=== PATIENT | female | born 1940 | race Native Hawaiian/Other Pacific Islander ===

== ENCOUNTER 2018-05-14 13:25 | Emergency (ER) | payer MEDICARE ==
--- NOTE | 2018-05-14 13:56 | Emergency Department Record ---
History of Present Illness - General Chief Complaint: Abdominal Pain Stated Complaint: CONSTIPATED Time Seen by Provider: 05/14/18 13:43 Source: Patient, Family Mode of Arrival: Ambulatory Limitations: No limitations - History of Present Illness Initial Comments: 78 yo female presents with abdominal cramps and constipation. The onset of the symptoms was first of the week. She was seen by her PCP and had an Xray performed yesterday. The XR demonstrated abundant stool, no obstruction. No fever, chills, or vomiting. She is eating and drinking. She denies any history of diverticulitis or intestinal infection. She does feel an urge to push but she has known hemorrhoids and resists pushing. She had labs this week that she reports her doctor told her were normal. MD Complaint: Abdominal pain, Other (Constipation) Onset/Timin -: Days(s) Location: Diffuse Radiation: None Migration to: No migration Severity scale (1-10): 7 Quality: Cramping Consistency: Constant Improves With: Nothing Worsens With: Nothing Associated Symptoms: Nausea - Related Data Patient : No Hx Age of Menopause: 51 Previous Rx's Medication Instructions Recorded Polyethylene Glycol 3350 [Miralax] 1 packet PO DAILY #20 packet 05/14/18 Allergies Allergy/AdvReac Type Severity Reaction Status Date / Time cephalexin [From Keflex] Allergy NAUSEA AND Verified 05/14/18 13:40 VOMITING mupirocin Allergy HIVES Verified 05/14/18 13:40 benazepril HCl AdvReac RESPIRATORY Verified 12/04/15 10:47 [From Lotensin] IRRITATION Travel Screening - Travel/Exposure Within Last 30 Days Have you traveled within the last 30 days?: No Review of Systems Constitutional: Denies: Chills, Fever, Malaise, Weakness Eyes: Denies: Eye discharge ENT: Denies: Congestion, Throat pain Respiratory: Denies: Cough, Dyspnea, Hemoptysis Cardiovascular: Denies: Chest pain, Palpitations, Syncope Endocrine: Denies: Fatigue Gastrointestinal: Reports: As per HPI, Abdominal pain, Constipation, Nausea. Denies: Diarrhea, Hematemesis, Hematochezia, Melena, Vomiting Genitourinary: Denies: Dysuria Musculoskeletal: Denies: Arthralgia, Back pain, Joint swelling, Myalgia Skin: Denies: Bruising, Change in color, Rash Neurological: Denies: Headache Psychiatric: Denies: Anxiety Hematological/Lymphatic: Denies: Easy bleeding, Easy bruising Past Medical History - SOCIAL HISTORY Smoking Status: Never smoker - RESPIRATORY Hx Respiratory Disorders: Yes Hx Bronchitis: Yes - CARDIOVASCULAR Hx Cardio Disorders: Yes Hx Hypertension: Yes Comment:: high cholesterol - NEURO Hx Neuro Disorders: No Hx Seizures: No - GI Hx GI Disorders: No Hx Reflux: Yes (controlled) Hx Hiatal Hernia: Yes Hx of Polyps: Yes (colon, benign) - Hx Genitourinary Disorders: No Hx Bladder Problem: Yes (leaks alot) - ENDOCRINE Hx Endocrine Disorders: No - MUSCULOSKELETAL Hx Musculoskeletal Disorders: No Hx Arthritis: Yes (osteoarthritis) Comment:: rt knee pain r/t osteoarthritis - PSYCH Hx Psych Problems: No - HEMATOLOGY/ONCOLOGY Hx Hematology/Oncology Disorders: No Family Medical History Any Significant Family History?: Yes Family Hx Comment (NOT TO BE USED IN PLACE OF ITEMS BELOW): Father of cerebral bleed at age 54. Mother of stroke and diabetes. Hx Diabetes: Mother Hx Heart Disease: Mother Hx Stroke: Father Physical Exam - General General Appearance: Alert, Oriented x3, Cooperative, No acute distress Limitations: No limitations - Head Head exam: Atraumatic, Normal inspection - Eye Eye exam: Normal appearance. negative: Conjunctival injection, Scleral icterus - ENT ENT exam: Normal exam Ear exam: Normal external inspection Nasal Exam: Normal inspection Mouth exam: Normal external inspection - Neck Neck exam: Normal inspection - Respiratory Respiratory exam: Normal lung sounds bilaterally. negative: Respiratory distress - Cardiovascular Cardiovascular Exam: Regular rate, Normal rhythm, Normal heart sounds - GI/Abdominal GI/Abdominal exam: Soft, Normal bowel sounds. negative: Distended, Guarding, Rebound, Rigid, Tenderness - Rectal Rectal exam: Fecal impaction, Heme (-) stool, Normal inspection, Normal rectal tone. negative: Black stool, Bloody stool, Decreased rectal tone, Heme (+) stool, Hemorrhoids, Mass, Tenderness - exam: Deferred - Extremities Extremities exam: Normal inspection - Back Back exam: Denies: CVA tenderness (R), CVA tenderness (L) - Neurological Neurological exam: Alert, Oriented X3 - Psychiatric Psychiatric exam: Normal affect, Normal mood - Skin Skin exam: Dry, Intact, Normal color, Warm Course Vital Signs 05/14/18 13:32 Temperature 98.1 F Pulse Rate 85 Respiratory 20 Rate Blood Pressure 156/73 Pulse Ox 98 - Reevaluation(s) Reevaluation #1: The XR and the report from yesterday was reviewed No obstruction with significant colonic stool throughout. The rectal examination demonstrated a significant amount of firm claylike stool in the rectum. Heme -. I recommend an enema for symptomatic relief. 05/14/18 13:59 05/14/18 15:07 The patient had a bowel movement with relief of the pressure feeling. We discussed home care for continuing bowel movements. We discussed reasons to return immediately as well. Disposition Disposition: Discharge Clinical Impression: Constipation Qualifiers: Constipation type: unspecified constipation type Qualified Code(s): K59.00 - Constipation, unspecified Disposition: Home, Self-Care Condition: (1) Good Instructions: Constipation (ED) Additional Instructions: Call your doctor for the next available follow up appointment Return to the ER for a recheck if worse, any new concerns or questions Take the prescriptions provided as directed Review this ER visit and the tests performed with your family doctor Prescriptions: Polyethylene Glycol 3350 [Miralax] 1 packet PO DAILY #20 packet Forms: Patient Portal Access Time of Disposition: 15:09 Quality - Quality Measures Quality Measures: N/A - Blood Pressure Screening Does Patient Have Any of the Following: No Blood Pressure Classification: Pre-Hypertensive BP Reading Systolic Measurement: 144 Diastolic Measurement: 82 Screening for High Blood Pressure: < Pre-Hypertensive BP, F/U Documented > [ G8950] Pre-Hypertensive Follow-up Interventions: Referral to alternative/primary care provider.
== END 2018-05-14 15:35 | disposition home or self-care (01) ==
LOC: ER 13:25
DX: K59.00 Constipation, unspecified (principal); R11.0 Nausea; I10 Essential (primary) hypertension
CPT/HCPCS: 99282

== ENCOUNTER 2018-11-20 12:02 | Emergency (ER) | payer MEDICARE ==
[2018-11-20 14:18] LABS: ABSOLUTE NEUTROPHIL COUNT 4.93; BASO % 0.1 % (0-6); EOS % 1.8 % (0-6); GRAN % 67.1 % (47-80); HEMATOCRIT 39.3 % (35.0-47.0); HEMOGLOBIN 12.8 gm/dl (11.6-16.0); LYMPH % 21.9 % (16-45); MEAN CELL VOLUME 97.8 fl (81-97); MEAN CORPUSCULAR HEMOGLOBIN 31.8 pg (27-33); MEAN CORPUSCULAR HGB CONC 32.6 g/dl (32-36); MEAN PLATELET VOLUME 12.9 fl (7.4-10.4); MONO % 9.1 % (0-9); PLATELET COUNT 186 K/uL (130-400); RED BLOOD COUNT 4.02 M/uL (3.80-5.40); WHITE BLOOD COUNT W/O DIFF 7.4 K/uL (4.2-12.2)
[2018-11-20 14:33] LABS: BLOOD UREA NITROGEN 17 mg/dL (8-23); CREATININE 0.5 mg/dL (0.5-0.9); EST GLOMERULAR FILTRATION RATE > 60 mL/min
[2018-11-20 14:36] LABS: GLUCOSE,RANDOM 83 mg/dL (74-109)
[2018-11-20] MEDS ORDERED: ACETAMINOPHEN 500 MG TABLET PO ONE (14:48)
--- NOTE | 2018-11-20 14:52 | Emergency Department Record ---
History of Present Illness - General Chief Complaint: Back Pain/Injury Stated Complaint: NAUSEA,BACK PAIN DUE TO MEDICATION Time Seen by Provider: 11/20/18 12:30 - History of Present Illness Onset/Timin -: Days(s) Similar Symptoms Previously: Yes Severity: Moderate Severity scale (1-10): 6 Quality: Aching Consistency: Constant Improves With: None Worsens With: None Context: Unknown Associated Symptoms: Denies other symptoms - Related Data Previous Rx's Medication Instructions Recorded Polyethylene Glycol 3350 [Miralax] 1 packet PO DAILY #20 packet 05/14/18 Apixaban [Eliquis] 5 mg PO BID #60 tablet 11/17/18 Allergies Allergy/AdvReac Type Severity Reaction Status Date / Time cephalexin [From Keflex] Allergy NAUSEA AND Verified 11/20/18 12:10 VOMITING mupirocin Allergy HIVES Verified 11/20/18 12:10 benazepril HCl AdvReac RESPIRATORY Verified 11/20/18 12:10 [From Lotensin] IRRITATION Travel Screening - Travel/Exposure Within Last 30 Days Have you traveled within the last 30 days?: No - Travel/Exposure Within Last Year Have you traveled outside the [place] in the last year?: No - Additonal Travel Details Have you been exposed to anyone with a communicable illness?: No Review of Systems Reviewed: No additional complaints except as noted below Constitutional: Reports: As per HPI. Denies: Chills, Fever, Malaise, Night sweats, Weakness, Weight change Eyes: Reports: As per HPI. Denies: Eye discharge, Eye pain, Photophobia, Vision change ENT: Reports: As per HPI. Denies: Congestion, Dental pain, Ear pain, Epistaxis, Hearing loss, Throat pain Respiratory: Reports: As per HPI. Denies: Cough, Dyspnea, Hemoptysis, Stridor, Wheezes Cardiovascular: Reports: As per HPI. Denies: Arrhythmia, Chest pain, Dyspnea on exertion, Edema, Murmurs, Orthopnea, Palpitations, Paroxysmal nocturnal dyspnea, Rheumatic Fever, Syncope Endocrine: Reports: As per HPI. Denies: Fatigue, Heat or cold intolerance, Polydipsia, Polyuria Gastrointestinal: Reports: As per HPI. Denies: Abdominal pain, Constipation, Diarrhea, Hematemesis, Hematochezia, Melena, Nausea, Vomiting Genitourinary: Reports: As per HPI. Denies: Abnormal menses, Discharge, Dyspareunia, Dysuria, Frequency, Hematuria, Incontinence, Retention, Urgency Musculoskeletal: Reports: As per HPI. Denies: Arthralgia, Back pain, Gout, Joint swelling, Myalgia, Neck pain Skin: Reports: As per HPI. Denies: Bruising, Change in color, Change in hair/nails, Lesions, Pruritus, Rash Neurological: Reports: As per HPI. Denies: Abnormal gait, Confusion, Headache, Numbness, Paresthesias, Seizure, Tingling, Tremors, Vertigo, Weakness Psychiatric: Reports: As per HPI. Denies: Anxiety, Auditory hallucinations, Depression, Homicidal thoughts, Suicidal thoughts, Visual hallucinations Hematological/Lymphatic: Reports: As per HPI. Denies: Anemia, Blood Clots, Easy bleeding, Easy bruising, Swollen glands Past Medical History - SOCIAL HISTORY Smoking Status: Never smoker Alcohol Use: None Drug Use: None - RESPIRATORY Hx Respiratory Disorders: Yes Hx Bronchitis: Yes - CARDIOVASCULAR Hx Cardio Disorders: Yes Hx Hypertension: Yes Comment:: high cholesterol - NEURO Hx Neuro Disorders: No Hx Seizures: No - GI Hx GI Disorders: No Hx Reflux: Yes (controlled) Hx Hiatal Hernia: Yes Hx of Polyps: Yes (colon, benign) - Hx Genitourinary Disorders: No Hx Bladder Problem: Yes (leaks alot) - ENDOCRINE Hx Endocrine Disorders: No - MUSCULOSKELETAL Hx Musculoskeletal Disorders: No Hx Arthritis: Yes (osteoarthritis) Comment:: rt knee pain r/t osteoarthritis - PSYCH Hx Psych Problems: No - HEMATOLOGY/ONCOLOGY Hx Hematology/Oncology Disorders: No Family Medical History Any Significant Family History?: Yes Family Hx Comment (NOT TO BE USED IN PLACE OF ITEMS BELOW): Father of cerebral bleed at age 54. Mother of stroke and diabetes. Hx Diabetes: Mother Hx Heart Disease: Mother Hx Stroke: Father Physical Exam - General General Appearance: Alert, Oriented x3, Cooperative, No acute distress - Head Head exam: Normal inspection - Eye Eye exam: Normal appearance, PERRL Pupils: Normal accommodation - ENT ENT exam: Normal exam, Mucous membranes moist, Normal external ear exam, Normal orophraynx, TM's normal bilaterally Ear exam: Normal external inspection. negative: External canal tenderness Nasal Exam: Normal inspection. negative: Discharge, Sinus tenderness Mouth exam: Normal external inspection, Tongue normal Teeth exam: Normal inspection. negative: Dental caries Throat exam: Normal inspection. negative: Tonsillar erythema, Tonsillar exudate - Neck Neck exam: Normal inspection, Full ROM. negative: Tenderness - Respiratory Respiratory exam: Normal lung sounds bilaterally. negative: Respiratory distress - Cardiovascular Cardiovascular Exam: Regular rate, Normal rhythm, Normal heart sounds - GI/Abdominal GI/Abdominal exam: Soft, Normal bowel sounds. negative: Tenderness - Rectal Rectal exam: Deferred - exam: Deferred - Extremities Extremities exam: Normal inspection, Full ROM, Normal capillary refill. negativ e: Tenderness - Back Back exam: Reports: Normal inspection, Full ROM. Denies: Muscle spasm, Rash noted, Tenderness - Neurological Neurological exam: Alert, Normal gait, Oriented X3, Reflexes normal - Psychiatric Psychiatric exam: Normal affect, Normal mood - Skin Skin exam: Dry, Intact, Normal color, Warm Course Vital Signs 11/20/18 11/20/18 12:15 14:33 Temperature 97.9 F Pulse Rate [ 63 59 L Right] Respiratory 18 20 Rate Blood Pressure 149/67 137/79 [Left Arm] Pulse Ox 97 97 Medical Decision Making - Data Complexity MDM Data: Labs Ordered and/or Reviewed (urine negative for infection), X-Ray Ordered and/or Reviewed (ct neg with some air in the bladder), EKG Ordered and/or Reviewed (EKG NSR and she spontaneously converted from atrial fib) - Lab Data Result diagrams: 11/20/18 14:05 11/20/18 14:05 Lab Results 11/20/18 11/20/18 11/20/18 Range/Units 14:05 14:05 14:05 WBC 7.4 (4.2-12.2) K/uL RBC 4.02 (3.80-5.40) M/uL Hgb 12.8 (11.6-16.0) gm/dl Hct 39.3 (35.0-47.0) % MCV 97.8 H (81-97) fl MCH 31.8 (27-33) pg MCHC 32.6 (32-36) g/dl RDW 13.0 (11.5-14.5) % Plt Count 186 (130-400) K/uL MPV 12.9 H (7.4-10.4) fl Gran % 67.1 (47-80) % Lymphocytes % 21.9 (16-45) % Monocytes % 9.1 H (0-9) % Eosinophils % 1.8 (0-6) % Basophils % 0.1 (0-6) % Absolute Neutrophils 4.93 Sodium 140 (136-145) mmol/L Potassium 3.7 (3.4-4.5) mmol/L Chloride 99 (98-107) mmol/L Carbon Dioxide 30.0 H (22-29) mmol/L Anion Gap 11.0 (7-16) BUN 17 (8-23) mg/dL Creatinine 0.5 (0.5-0.9) mg/dL Estimated GFR > 60 mL/min Random Glucose 83 (74-109) mg/dL Calcium 9.2 (8.8-10.2) mg/dL Troponin T < 0.010 (0-0.010) ng/mL Disposition Clinical Impression: Intermittent atrial fibrillation Lumbar spine strain Qualifiers: Encounter type: subsequent encounter Qualified Code(s): S39.012D - Strain of muscle, fascia and tendon of lower back, subsequent encounter Disposition: Home, Self-Care Condition: (1) Good Instructions: Low Back Strain (ED) Additional Instructions: follow up as planned with cardiology follow up with family Dr Bailey for her back pain tylenol for pain take 2 tylenols 500mg three times a day biofreeze on her back Forms: Patient Portal Access Time of Disposition: 15:04 Quality - Quality Measures Quality Measures: N/A - Blood Pressure Screening Does Patient Have Any of the Following: No Blood Pressure Classification: Pre-Hypertensive BP Reading Systolic Measurement: 137 Diastolic Measurement: 79 Screening for High Blood Pressure: < Pre-Hypertensive BP, F/U Documented > [G8950] Pre-Hypertensive Follow-up Interventions: Referral to alternative/primary care provider.
[2018-11-20 14:54] LABS: URINE APPEARANCE CLEAR; URINE BILIRUBIN NEGATIVE (NEGATIVE); URINE BLOOD NEGATIVE (NEGATIVE); URINE COLOR YELLOW; URINE GLUCOSE (UA) NEGATIVE (NEGATIVE); URINE KETONE NEGATIVE (NEGATIVE); URINE LEUKOCYTE ESTERASE TRACE (NEGATIVE); URINE NITRITE NEGATIVE (NEGATIVE); URINE PROTEIN NEGATIVE (NEGATIVE); URINE UROBILINOGEN 0.2 E.U./dL (0.20 - 1.00)
[2018-11-20 15:00] LABS: URINE RBC NONE SEEN (NONE SEEN); URINE WBC 0 - 2 (0-2/hpf)
--- NOTE | 2018-11-23 08:25 | CT SCAN REPORT ---
EXAM: CT OF THE ABDOMEN AND PELVIS WITHOUT CONTRAST HISTORY: BILATERAL FLANK PAIN WITH NAUSEA FOR FIVE DAYS. RECENT DIAGNOSIS OF ATRIAL FIBRILLATION. PRIOR APPENDECTOMY AND HYSTERECTOMY. TECHNIQUE: Helical CT examination of the abdomen and pelvis was performed without oral or intravenous contrast administration. Lack of oral and IV contrast utilization limits evaluation of the bowel and solid viscera respectively. Comparison: Abdominal ultrasound complete dated 12/04/15. Acute abdominal series dated 05/13/18. FINDINGS: There is mild dependent atelectasis in each lung base. There is also compressive atelectasis in the posteromedial right lung base due to end plate spurring within the lower thoracic spine. No lung base consolidation, pleural effusion or pericardial effusion. The heart appears mildly enlarged. The liver, spleen, pancreas, and adrenal glands are normal in appearance. The gallbladder is unremarkable and no biliary ductal dilatation is seen. The kidneys are normal in size and position. They are smoothly marginated. No nephrolithiasis. No renal mass. The renal collecting systems are not dilated. No definite ureteral calculus. There are, however, a few small calcifications noted bilaterally near the distal aspects of the ureters. These are likely vascular in origin. There is diffuse atherosclerosis without aneurysmal dilatation of the abdominal aorta nor iliac arteries. No intraabdominal nor retroperitoneal lymphadenopathy. No pelvis mass. The uterus is surgically absent. There is a tiny gas collection questioned in the nondependent urinary bladder. Has there been recent instrumentation. No definite focal urinary bladder wall abnormality. No gross bowel dilatation nor bowel wall thickening. By history, the appendix is surgically absent. Evaluation of the wall of the stomach is limited by lack of distention. No ascites nor free intraperitoneal air. The abdominal wall is intact. No lytic or blastic bone lesion. There are degenerative changes throughout the lumbar spine, most pronounced at the lower lumbar levels where the facet arthropathy is advanced. Mild degenerative changes scattered throughout the hips. IMPRESSION: 1. LACK OF ORAL AND IV CONTRAST UTILIZATION LIMITS EVALUATION OF THE BOWEL AND SOLID VISCERA RESPECTIVELY. 2. NO NEPHROLITHIASIS NOR OBSTRUCTIVE UROPATHY. 3. NO DEFINITE CT EVIDENCE OF AN ACUTE INTRAABDOMINAL NOR INTRAPELVIC PROCESS. 4. SURGICAL ABSENCE OF THE APPENDIX AND UTERUS. 5. QUESTIONABLE TINY GAS COLLECTION IN THE NONDEPENDENT URINARY BLADDER LUMEN. HAS THERE BEEN RECENT INSTRUMENTATION/CATHETERIZATION. BOWEL TO BLADDER FISTULA IS UNLIKELY. 6. MILD ATELECTASIS WITHIN THE LUNG BASES. 7. DEGENERATIVE CHANGES THROUGHOUT THE VISUALIZED SPINE. JOB NUMBER: [id number] MTDD
== END 2018-11-20 15:19 | disposition home or self-care (01) ==
LOC: ER 12:02
DX: I48.91 Unspecified atrial fibrillation (principal); S39.012D Strain of muscle, fascia and tendon of lower back, subsequent encounter; R11.0 Nausea; I10 Essential (primary) hypertension; Z79.01 Long term (current) use of anticoagulants
CPT/HCPCS: 74176; 80048; 81001; 84484; 85025; 93005; 93010; 99284

== ENCOUNTER 2018-12-08 04:46 | Emergency (ER) | payer MEDICARE ==
--- NOTE | 2018-12-08 04:56 | Emergency Department Record ---
History of Present Illness - General Chief complaint: Nausea, Vomiting, Diarrhea Stated complaint: ABDOMINAL PAIN Time Seen by Provider: 12/08/18 04:47 Source: Patient Mode of Arrival: Ambulatory Limitations: No limitations - History of Present Illness Initial comments: 78 yo female presents to ED for evaluation of "feeling blocked up" for the past 2 days. Patient reports a history of constipation symptoms earlier in the year, reports that she takes Miralax daily currently. Patient denies abdominal pain, vomiting, fevers, chills, or urinary symptoms. Patient denies blood in the stool or loose stools. Patient does report normal stool 2 days ago, only small amount yesterday morning. Patient also reports that she is undergoing evaluation for her gallbladder including recent US (negative) and HIDA scan scheduled next week, patient reports that she is not eating much as a result. MD complaint: Other (Constipation) Onset/Timin -: Days(s) Radiation: None Severity: Moderate Quality: Aching Consistency: Constant Improves with: None Worsens with: None Associated Symptoms: Denies other symptoms - Related Data Home Medications Medication Instructions Recorded Confirmed Last Taken Famotidine 80 mg PO DAILY 12/08/18 12/08/18 Unknown Hydralazine HCl 10 mg PO QID 12/08/18 12/08/18 Unknown Hydrochlorothiazide [Hctz] 1 tab PO DAILY 12/08/18 12/08/18 Unknown Ondansetron HCl [Zofran] 1 tab PO Q8HR PRN 12/08/18 12/08/18 12/08/18 0230 Vit C/Vit E AC/Lut/Copper/Zinc 1 tab PO BID 12/08/18 12/08/18 Unknown [PreserVision Lutein Softgel] Previous Rx's Medication Instructions Recorded Polyethylene Glycol 3350 [Miralax] 1 packet PO DAILY #20 packet 05/14/18 Apixaban [Eliquis] 5 mg PO BID #60 tablet 11/17/18 Magnesium Citrate 295 ml PO Q8H PRN #2 solution 12/08/18 Allergies Allergy/AdvReac Type Severity Reaction Status Date / Time cephalexin [From Keflex] Allergy NAUSEA AND Verified 12/08/18 05:03 VOMITING mupirocin Allergy HIVES Verified 12/08/18 05:03 benazepril HCl AdvReac RESPIRATORY Verified 12/08/18 05:03 [From Lotensin] IRRITATION Review of Systems Constitutional: Denies: Chills, Fever, Malaise, Night sweats Eyes: Denies: Eye discharge, Eye pain ENT: Denies: Congestion, Ear pain, Epistaxis Respiratory: Denies: Cough, Dyspnea Cardiovascular: Denies: Chest pain, Dyspnea on exertion Endocrine: Denies: Fatigue, Heat or cold intolerance Gastrointestinal: Reports: Constipation, Nausea. Denies: Abdominal pain, Vomiting Genitourinary: Denies: Incontinence, Retention Musculoskeletal: Denies: Arthralgia, Back pain Skin: Denies: Bruising, Change in color Neurological: Denies: Abnormal gait, Confusion, Headache, Seizure Psychiatric: Denies: Anxiety Hematological/Lymphatic: Denies: Anemia, Blood Clots Past Medical History - SOCIAL HISTORY Smoking Status: Never smoker Drug Use: None - RESPIRATORY Hx Respiratory Disorders: Yes Hx Bronchitis: Yes - CARDIOVASCULAR Hx Cardio Disorders: Yes Hx Hypertension: Yes Comment:: high cholesterol - NEURO Hx Neuro Disorders: No Hx Seizures: No - GI Hx GI Disorders: No Hx Reflux: Yes (controlled) Hx Hiatal Hernia: Yes Hx of Polyps: Yes (colon, benign) - Hx Genitourinary Disorders: No Hx Bladder Problem: Yes (leaks alot) - ENDOCRINE Hx Endocrine Disorders: No - MUSCULOSKELETAL Hx Musculoskeletal Disorders: No Hx Arthritis: Yes (osteoarthritis) Comment:: rt knee pain r/t osteoarthritis - PSYCH Hx Psych Problems: No - HEMATOLOGY/ONCOLOGY Hx Hematology/Oncology Disorders: No Family Medical History Family Hx Comment (NOT TO BE USED IN PLACE OF ITEMS BELOW): Father of cerebral bleed at age 54. Mother of stroke and diabetes. Hx Diabetes: Mother Hx Heart Disease: Mother Hx Stroke: Father Physical Exam - General General Appearance: Alert, Oriented x3, Cooperative, Mild distress Limitations: No limitations - Head Head exam: Atraumatic, Normocephalic, Normal inspection Head exam detail: negative: Abrasion, Contusion, Moon's sign, General tenderness, Hematoma, Laceration - Eye Eye exam: Normal appearance. negative: Conjunctival injection, Periorbital swelling, Periorbital tenderness, Scleral icterus - ENT Ear exam: negative: Auricular hematoma, Auricular trauma Nasal Exam: negative: Active bleeding, Discharge, Dried blood, Foreign body Mouth exam: negative: Drooling, Laceration, Muffled voice, Tongue elevation - Neck Neck exam: Normal inspection. negative: Meningismus, Tenderness - Respiratory Respiratory exam: Normal lung sounds bilaterally. negative: Rales, Respiratory distress, Rhonchi, Stridor - Cardiovascular Cardiovascular Exam: Regular rate, Normal rhythm, Normal heart sounds - GI/Abdominal GI/Abdominal exam: Soft, Other (Abdomen is 100% nontender on examination). negative: Rebound, Rigid, Tenderness - Rectal Rectal exam: Deferred - exam: Deferred - Back Back exam: Denies: CVA tenderness (R), CVA tenderness (L) - Neurological Neurological exam: Alert, Normal gait, Oriented X3 - Psychiatric Psychiatric exam: Normal affect, Normal mood - Skin Skin exam: Normal color. negative: Abrasion Type of lesion: negative: abrasion Course - Reevaluation(s) Reevaluation #1: 12/08/18 04:54 Recent records were reviewed: Normal US imaging of the gallbladder 11/25/18 11/20/18: Patient was seen in ED for nausea, back pain Underwent CT imaging of the abdomen/pelvis demonstrating possible air within the bladder No acute process demonstrated Patient was seen and examined, abdominal examination fails to demonstrate any e vidence for an acute process, no pain on palpation to any region of the abdomen/pelvis. Repeat CT imaging is not felt to be indicated in the presence of a normal abdominal examination. Will obtain laboratory studies, administer Magneisum Citrate, and reassess. Reevaluation #2: 12/08/18 06:07 Laboratory studies were reviewed and appear grossly unremarkable for an acute process. Patient was unable to give a UA sample, urinated around the collection hat. Patient completed her magnesium citrate bottle, felt as though she was going to have a bowel movement however did not. Repeat abdominal examination remains benign (non-tender), no evidence for an acute surgical process is present on examination. No clinical indication for imaging based on my examination. As the patient will be returning to the hospital for an echo in 5 hours, recommended discharge home to rest with instructions to repeat magnesium citrate following completion of her echo today. Patient was also counseled that she may not have significant stool in the colon due to her low appetite lately as well. Patient was counseled to hold further administration of magnesium citrate should loose stools develop. Patient appears stable for discharge at this time with Rx for more magnesium citrate as directed. Medical Decision Making - Lab Data Result diagrams: 12/08/18 05:25 12/08/18 05:25 Disposition Disposition: Discharge Clinical Impression: Constipation Qualifiers: Constipation type: unspecified constipation type Qualified Code(s): K59.00 - Constipation, unspecified Disposition: Home, Self-Care Condition: (2) Stable Instructions: Constipation (ED) Additional Instructions: Return to ED if your symptoms worsen or if you have any concerns. Magnesium Citrate as directed. Follow-up with your family doctor in 3-5 days as directed. Prescriptions: Magnesium Citrate 295 ml PO Q8H PRN #2 solution PRN Reason: Constipation Forms: Patient Portal Access Time of Disposition: 06:16 Quality - Quality Measures Quality Measures: N/A - Blood Pressure Screening Does Patient Have Any of the Following: Active Dx of HTN Blood Pressure Classification: Hypertensive Reading Systolic Measurement: 158 Diastolic Measurement: 56 Screening for High Blood Pressure: Patient Exclusion, Hx of HTN [G9744]
[2018-12-08] MEDS ORDERED: 0.9 % SODIUM CHLORIDE 1000ML 1,000 ML IV SCH (05:00)
[2018-12-08] MEDS ORDERED: MAGNESIUM CITRATE 296 ML BTL PO ONE (05:12)
[2018-12-08 05:35] LABS: BASO % 0.3 % (0-6); EOS % 1.2 % (0-6); GRAN % 69.1 % (47-80); HEMATOCRIT 41.2 % (35.0-47.0); HEMOGLOBIN 13.7 gm/dl (11.6-16.0); LYMPH % 21.3 % (16-45); MEAN CELL VOLUME 94.5 fl (81-97); MEAN CORPUSCULAR HEMOGLOBIN 31.4 pg (27-33); MEAN CORPUSCULAR HGB CONC 33.3 g/dl (32-36); MEAN PLATELET VOLUME 13.1 fl (7.4-10.4); MONO % 8.1 % (0-9); PLATELET COUNT 202 K/uL (130-400); RED BLOOD COUNT 4.36 M/uL (3.80-5.40); RED CELL DISTRIBUTION WIDTH 12.5 % (11.5-14.5); WHITE BLOOD COUNT W/O DIFF 7.5 K/uL (4.2-12.2)
[2018-12-08 05:43] LABS: BLOOD UREA NITROGEN 12 mg/dL (8-23); CREATININE 0.6 mg/dL (0.5-0.9); EST GLOMERULAR FILTRATION RATE > 60 mL/min
[2018-12-08 05:44] LABS: LIPASE 26 U/L (13-60); TOTAL PROTEIN 6.9 g/dL (6.6-8.7)
[2018-12-08 05:46] LABS: GLUCOSE,RANDOM 114 mg/dL (74-109)
[2018-12-08 05:49] LABS: ALB/GLOB RATIO 1.8 (1.1-1.8); ALBUMIN 4.4 g/dL (4.0-5.0); ALKALINE PHOSPHATASE 106 U/L (35-104); ALT/SGPT 10 U/L (<33); AST/SGOT 22 U/L (10.0-35.0)
== END 2018-12-08 06:26 | disposition home or self-care (01) ==
LOC: ER 04:46
DX: K59.00 Constipation, unspecified (principal); I48.0 Paroxysmal atrial fibrillation; R19.7 Diarrhea, unspecified; R11.2 Nausea with vomiting, unspecified; I10 Essential (primary) hypertension; I34.0 Nonrheumatic mitral (valve) insufficiency; I07.1 Rheumatic tricuspid insufficiency; I51.89 Other ill-defined heart diseases
CPT/HCPCS: 80053; 83690; 85025; 93306; 99283

== ENCOUNTER 2018-12-25 11:19 | Emergency (ER) | payer MEDICARE ==
[2018-12-25] MEDS ORDERED: 0.9 % SODIUM CHLORIDE 1,000 ML BAG IV ONE (11:42)
[2018-12-25 11:49] LABS: BASO % 0.1 % (0-6); EOS % 2.2 % (0-6); GRAN % 71.2 % (47-80); HEMATOCRIT 41.4 % (35.0-47.0); HEMOGLOBIN 13.7 gm/dl (11.6-16.0); LYMPH % 17.5 % (16-45); MEAN CELL VOLUME 96.1 fl (81-97); MEAN CORPUSCULAR HEMOGLOBIN 31.8 pg (27-33); MEAN CORPUSCULAR HGB CONC 33.1 g/dl (32-36); MEAN PLATELET VOLUME 13.3 fl (7.4-10.4); PLATELET COUNT 227 K/uL (130-400); RED BLOOD COUNT 4.31 M/uL (3.80-5.40); RED CELL DISTRIBUTION WIDTH 12.7 % (11.5-14.5); WHITE BLOOD COUNT W/O DIFF 8.7 K/uL (4.2-12.2)
--- NOTE | 2018-12-25 11:51 | Emergency Department Record ---
History of Present Illness - General Chief Complaint: Arrythmia/Palpitations Stated Complaint: irregular heart beat/shakey Time Seen by Provider: 12/25/18 11:30 Source: Patient Mode of Arrival: Ambulatory Limitations: No limitations - History of Present Illness Initial Comments: The patient is here due to not feeling well for about an hour. She has a recent hx of Afib and has been seeing Dr. Moreau for it and is presently on a B-aure and Eliquis. She recently had a normal cardiac echo and nuclear stress test. She had been doing well at home until about an hour ago when she felt like she was back in Afib. The patient denies any CP, SOB, sweating, or nausea but does feel weak and shakey. The patient denies any recent illnesses but did have her m edicine adjusted recently by Dr. Moreau's and had her Coreg slightly increased. MD Complaint: Atrial fibrillation, "Skipped beats" Onset/Timin -: Minutes(s) Context: Occurred during rest Treatment Prior to Arrival Comment:: none - Related Data Previous Rx's Medication Instructions Recorded Polyethylene Glycol 3350 [Miralax] 1 packet PO DAILY #20 packet 05/14/18 Apixaban [Eliquis] 5 mg PO BID #60 tablet 11/17/18 Magnesium Citrate 295 ml PO Q8H PRN #2 solution 12/08/18 Flecainide Acetate 50 mg PO BID #60 tablet 12/25/18 Allergies Allergy/AdvReac Type Severity Reaction Status Date / Time cephalexin [From Keflex] Allergy NAUSEA AND Verified 12/25/18 11:31 VOMITING mupirocin Allergy HIVES Verified 12/25/18 11:31 benazepril HCl AdvReac RESPIRATORY Verified 12/25/18 11:31 [From Lotensin] IRRITATION Travel Screening - Travel/Exposure Within Last 30 Days Have you traveled within the last 30 days?: No - Travel/Exposure Within Last Year Have you traveled outside the [place] in the last year?: No - Additonal Travel Details Have you been exposed to anyone with a communicable illness?: No - Travel Symptoms Symptom Screening: None Review of Systems Constitutional: Denies: Chills, Fever Eyes: Denies: Eye discharge ENT: Denies: Congestion Respiratory: Denies: Cough Cardiovascular: Reports: Arrhythmia. Denies: Chest pain Endocrine: Reports: Fatigue Gastrointestinal: Denies: Nausea Genitourinary: Denies: Dysuria Musculoskeletal: Denies: Arthralgia Past Medical History - SOCIAL HISTORY Smoking Status: Never smoker Alcohol Use: None Drug Use: None - RESPIRATORY Hx Respiratory Disorders: No - CARDIOVASCULAR Hx Cardio Disorders: Yes Hx Hypertension: Yes Hx Irregular Heartbeat: Yes (A-fib) Comment:: high cholesterol - NEURO Hx Neuro Disorders: No Hx Seizures: No - GI Hx GI Disorders: Yes Hx Reflux: Yes (controlled) Hx Hiatal Hernia: Yes Hx of Polyps: Yes (colon, benign) - Hx Genitourinary Disorders: No Hx Bladder Problem: Yes (leaks alot) - ENDOCRINE Hx Endocrine Disorders: No Hx Diabetes: No Hx Thyroid Disease: No - MUSCULOSKELETAL Hx Musculoskeletal Disorders: No Hx Arthritis: Yes (osteoarthritis) Comment:: rt knee pain r/t osteoarthritis - PSYCH Hx Psych Problems: No - HEMATOLOGY/ONCOLOGY Hx Hematology/Oncology Disorders: No Family Medical History Any Significant Family History?: Yes Family Hx Comment (NOT TO BE USED IN PLACE OF ITEMS BELOW): Father of cerebral bleed at age 54. Mother of stroke and diabetes. Hx Diabetes: Mother Hx Heart Disease: Mother Hx Stroke: Father Physical Exam - General General Appearance: Alert, Oriented x3, Cooperative, No acute distress - Head Head exam: Atraumatic - Eye Eye exam: Normal appearance - Neck Neck exam: Normal inspection, Full ROM. negative: Tenderness - Respiratory Respiratory exam: Normal lung sounds bilaterally. negative: Respiratory distress - Cardiovascular Cardiovascular Exam: Normal heart sounds, Irregular rhythm. negative: Regular rate, Normal rhythm - GI/Abdominal GI/Abdominal exam: Soft, Normal bowel sounds. negative: Tenderness - Extremities Extremities exam: Normal inspection, Full ROM, Normal capillary refill. negative: Tenderness - Neurological Neurological exam: Alert, Normal gait. negative: Abnormal gait, Motor sensory deficit - Psychiatric Psychiatric exam: Anxious - Skin Skin exam: negative: Rash Course Vital Signs 12/25/18 11:23 Temperature 97.6 F Pulse Rate 129 H Respiratory 20 Rate Blood Pressure 143/79 Pulse Ox 98 - Reevaluation(s) Reevaluation #1: The patient is doing very well at this time. She is up walking with no difficulty, weakness, shaking, or lightheadedness. She also denies any SOB, SAM or chest pain. I did offer to watch her in the hospital overnight due to her previous symptoms which now have resolved. Due to the fact the patient has proper rate control with her medicines and also is on Eliquis, and she has a hx of the same issues recently with a neg cardiac workup, I do feel she is stable for discharge. 12/25/18 12:55 Reevaluation #2: I did discuss the case with Dr. Alejandra and he does believe the patient is stable for discharge. He would like me to decrease her Coreg to twice a day and to add Flecanide for home. The patient is to see Dr. Moreau this week for recheck. 12/25/18 13:15 Reevaluation #3: The patient continues to do well here. She has been up walking with no difficulty or problems and has no dizziness or weakness. 12/25/18 13:20 Medical Decision Making - Data Complexity MDM Data: Labs Ordered and/or Reviewed, EKG Ordered and/or Reviewed - Lab Data Result diagrams: 12/25/18 11:28 12/25/18 11:28 - EKG Data -: EKG Interpreted by Me EKG: No Acute Changes, Unchanged From Previous (Afib at 109, neg ischemic changes.) Disposition Disposition: Discharge Clinical Impression: Intermittent atrial fibrillation Disposition: Home, Self-Care Condition: (2) Stable Instructions: Heart Palpitations (ED) Additional Instructions: Please decrease your Coreg to twice a day and please start the Flecanide. Please see Dr. Pandey this week for recheck [facility] and return to the ER for any worsening symptoms. Please do not take the Zofran while taking the Flecainide. Prescriptions: Flecainide Acetate 50 mg PO BID #60 tablet Referrals: [facility] [Provider Group] Forms: Patient Portal Access Time of Disposition: 13:17 Quality - Quality Measures Quality Measures: N/A - Blood Pressure Screening View Details: Yes Does Patient Have Any of the Following: Active Dx of HTN Blood Pressure Classification: Hypertensive Reading Systolic Measurement: 143 Diastolic Measurement: 79 Screening for High Blood Pressure: Patient Exclusion, Hx of HTN [G9744]
[2018-12-25 11:58] LABS: BLOOD UREA NITROGEN 14 mg/dL (8-23); CREATININE 0.7 mg/dL (0.5-0.9); EST GLOMERULAR FILTRATION RATE > 60 mL/min
[2018-12-25 11:59] LABS: TOTAL PROTEIN 6.9 g/dL (6.6-8.7)
[2018-12-25 12:01] LABS: GLUCOSE,RANDOM 139 mg/dL (74-109); INR 1.1; PARTIAL THROMBOPLASTIN TIME 29.9 SECONDS (24.5-39.1)
[2018-12-25 12:03] LABS: ALT/SGPT 13 U/L (<33); AST/SGOT 24 U/L (10.0-35.0)
[2018-12-25 12:04] LABS: ALB/GLOB RATIO 1.9 (1.1-1.8); ALBUMIN 4.5 g/dL (4.0-5.0); ALKALINE PHOSPHATASE 112 U/L (35-104)
[2018-12-25 12:14] LABS: THYROID STIMULATING HORMONE 0.41 uIU/mL (0.270-4.20)
== END 2018-12-25 13:28 | disposition home or self-care (01) ==
LOC: ER 11:19
DX: I48.91 Unspecified atrial fibrillation (principal); R53.1 Weakness; I10 Essential (primary) hypertension; Z79.01 Long term (current) use of anticoagulants
CPT/HCPCS: 80053; 84443; 84484; 85025; 85610; 85730; 93005; 93010; 96360; 99284; J7030